=== PATIENT | female | born 1975 | race Caucasian/White ===

== ENCOUNTER 2017-12-31 17:14 | Emergency (ER) | payer MEDICAID, SELFPAY ==
[2017-12-31 17:15] VITALS: BP 157/88; PULSE 103; RESP 22; TEMP 36; O2SAT 99; BMI 41.2
--- NOTE | 2017-12-31 18:34 | US_ITS ---
STUDY: ULTRASOUND GALLBLADDER REASON FOR VISIT: Female, 42 years old. Right upper quadrant pain TECHNIQUE: Ultrasound evaluation of the gallbladder was performed with real-time and static mejias-scale imaging. TECHNICAL QUALITY: Adequate. COMPARISON: None. FINDINGS: Liver measures 20 cm and appears echogenic. Gallbladder: Normal distended gallbladder. The gallbladder wall measures 1.7 mm. There is a negative sonographic Gil's sign. There is no pericholecystic fluid. There are no gallstones. Common Bile Duct (C.B.D.): The common bile duct measures 5.3 mm. US/Gallbladder IMPRESSION: Hepatocellular disease most likely hepatic steatosis. No gallstones. Electronically Signed: Govind Nassar MD at 22:04 EST , Service support ,
--- NOTE | 2017-12-31 18:36 | ED.VISSUMM ---
- ER Visit Summary Date of Service: 12/31/17 Chief Complaint: Abdominal pain History of Present Illness: The patient is a 42 F presenting with right upper quadrant abdominal pain. She states it started in September but has been worsening recently. She states in November she had a lung biopsy at [facility]. She states this was complicated by a lung collapse and ventilator dependent respiratory failure. She was diagnosed with interstitial lung disease. She takes Bactrim 3 times a week. She has seen Dr. North for gallbladder disease. She states that she was advised he will not remove her gallbladder until her lungs have healed. Physical Examination: Vitals are stable. Patient is afebrile. Alert no acute distress. HEENT exam is unremarkable. Neck is supple. Lungs are clear and equal bilaterally. Heart is regular rate and rhythm. Abdomen is soft right upper quadrant tenderness, no guarding or rebound Extremities are unremarkable. Skin is warm and dry. No rash No focal neurologic deficit. Remainder of exam is unremarkable. Emergency Department Course and Treatment: Patient was given Morphine and Zofran IV with improvement. CBC shows a white count of 13.7. Chemistries show glucose 193. Liver lipase are normal. Ultrasound of gallbladder shows hepatocellular disease likely hepatic steatosis, no gallstones. CT abdomen pelvis shows hepatic steatosis, contracted gallbladder, no acute process. Discussed with Dr. North. He will see her in the office for outpatient follow-up. She is given a prescription for Percocet and Zofran. Advised return to ED if worsening complaints. Disposition: Discharge home Impression: Abdominal pain This note was generated with Ring[employer] dictation software. It may contain incorrect words, spelling, and punctuation that were not noted in review of the chart prior to signing ED Disposition - Plan for ED Patient: Chief Complaint: Abd Pain Referrals: Veronica Lima MD [Primary Care Provider] -
--- NOTE | 2017-12-31 18:39 | ED.DCSUM_ITS ---
- ER Visit Summary Date of Service: 12/31/17 Chief Complaint: Abdominal pain History of Present Illness: The patient is a 42 F presenting with right upper quadrant abdominal pain. She states it started in September but has been worsening recently. She states in November she had a lung biopsy at [facility]. She states this was complicated by a lung collapse and ventilator dependent respiratory failure. She was diagnosed with interstitial lung disease. She takes Bactrim 3 times a week. She has seen Dr. North for gallbladder disease. She states that she was advised he will not remove her gallbladder until her lungs have healed. Physical Examination: Vitals are stable. Patient is afebrile. Alert no acute distress. HEENT exam is unremarkable. Neck is supple. Lungs are clear and equal bilaterally. Heart is regular rate and rhythm. Abdomen is soft right upper quadrant tenderness, no guarding or rebound Extremities are unremarkable. Skin is warm and dry. No rash No focal neurologic deficit. Remainder of exam is unremarkable. Emergency Department Course and Treatment: Patient was given Morphine and Zofran IV with improvement. CBC shows a white count of 13.7. Chemistries show glucose 193. Liver lipase are normal. Ultrasound of gallbladder shows hepatocellular disease likely hepatic steatosis, no gallstones. CT abdomen pelvis shows hepatic steatosis, contracted gallbladder, no acute process. Discussed with Dr. North. He will see her in the office for outpatient follow -up. She is given a prescription for Percocet and Zofran. Advised return to ED if worsening complaints. Disposition: Discharge home Impression: Abdominal pain This note was generated with [employer] dictation software. It may contain incorrect words, spelling, and punctuation that were not noted in review of the chart prior to signing ED Disposition - Plan for ED Patient: Chief Complaint: Abd Pain Referrals: Veronica Lima MD [Primary Care Provider] -
[2017-12-31] MEDS: Ondansetron 4 MG/2 ML Vial IV (18:51)
[2017-12-31 18:56] LABS: Absolute Neutrophil Count 10.1 X10^3/uL (2.0-7.7); Basophil# 0.02 X10^3/uL; Basophil% 0.1 % (0-1); Eosinophil# 0.05 X10^3/uL; Eosinophils% 0.4 % (0-5); Hematocrit 40.8 % (37-47); Hemoglobin 13.2 g/dl (12.0-15.0); Mean Corp Hgb Conc 32.4 g/gl (32-36); Mean Corpuscular Volume 95.8 fL (81-99); Mean Platelet Vol. 9.4 fl (6.2-12.0); Monocyte# 0.66 X10^3/uL; Monocyte% 4.8 % (0-10); Neutrophil # 10.08 X10^3/uL (2.7-7.7); Neutrophil % 73.9 % (47-70); Platelet Count 201 K/mm3 (150-450); RBC Distribution Width CV 14.3 % (11.6-14.6); RBC Distribution Width SD 49.3 fl (35.1-43.9); Red Blood Count 4.26 M/mm3 (4.2-5.4); White Blood Count 13.7 K/mm3 (4.4-11.0)
[2017-12-31 18:57] LABS: POSITIVE COUNT NO; POSITIVE DIFFERENTIAL NO; POSITIVE MORPHOLOGY NO
[2017-12-31 19:25] LABS: AST(SGOT) 21 U/L (15-37); Alanine Aminotransfer ALT/SGPT 44 U/L (13-56); Albumin, Serum 2.9 g/dL (3.2-5.0); Alkaline Phosphatase 94 U/L (45-117); Anion Gap 14 (5-15); BUN 15 mg/dL (7-18); BUN/Creat Ratio 17.8 RATIO (10-20); Bilirubin, Direct 0.08 mg/dL (0.00-0.30); Calcium,Total 8.8 mg/dL (8.5-10.1); Chloride 102 mmol/L (98-107); Creatinine, Serum 0.84 mg/dL (0.55-1.02); EST Glomerular Filtration Rate 79 mL/min (>60); Est Glom Filt Rate - Afr Amer 95 mL/min (>60); Estimated Creatinine Clearance 78.51 ml/min; Globulin 3.9 g/dL (2.2-4.2); Glucose 193 mg/dL (74-106); Lipase 226 U/L (73-393); Potassium 4.1 mmol/L (3.5-5.1); Protein, Total 6.8 g/dL (6.4-8.2); Sodium Level 140 mmol/L (136-145)
--- NOTE | 2017-12-31 22:43 | CT_ITS ---
STUDY: CT ABDOMEN AND PELVIS WITHOUT CONTRAST REASON FOR EXAM: Female, 42 years old. Right upper quadrant pain and history of gallbladder problems. RADIATION DOSAGE (If Supplied By Facility): CTDIvol = ( 23.46 ) mGy, DLP = ( 1230.68 ) mGycm TECHNIQUE: Transaxial images were obtained from the dome of the diaphragm to the symphysis pubis without oral contrast, and without intravenous contrast. Sagittal and coronal images were reconstructed. Individualized dose optimization techniques were used for this CT. COMPARISON: Gallbladder ultrasound from today FINDINGS: Subsegmental atelectasis at the lung bases bilaterally. Mild cardiomegaly. There is decreased attenuation of the liver consistent with steatosis. The gallbladder is contracted. Normal spleen. Normal pancreas. Normal bilateral adrenal glands. Normal right kidney. Normal left kidney. Normal visualized stomach. Normal small intestine. Normal colon. The appendix is visualized and appears normal. Normal abdominal aorta. Normal inferior vena cava. Normal retroperitoneum. Normal urinary bladder. 2.9 cm left adnexal cyst. Normal abdominal wall. Normal osseous structures. CT/Abdomen/Pelvis without Cont IMPRESSION: Hepatic steatosis. Contracted gallbladder. No other cause for right upper quadrant abdominal pain identified. Electronically Signed: Govind Nassar MD at 23:56 EST , Service support ,
[2017-12-31 23:00] VITALS: BP 143/99; PULSE 88; RESP 16
--- NOTE | 2018-01-01 00:40 | ED.DEP ---
ED Disposition - Plan for ED Patient: Chief Complaint: Abd Pain Instructions: ED Abdominal Pain Unkn Cause Prescriptions: Oxycodone HCl/Acetaminophen [Percocet 5/325] 1 tablet PO Q6H PRN PRN 3 Days #12 tablet PRN Reason: Pain Ondansetron [Zofran Odt] 4 mg PO Q8H PRN PRN #10 tablet PRN Reason: Nausea Referrals: Veronica Lima MD [Primary Care Provider] - Dre North MD [STAFF PHYSICIAN] -
[2018-01-01 01:03] VITALS: BP 102/68; PULSE 85; RESP 16
== END 2018-01-01 01:04 | disposition home or self-care (01) ==
LOC: ED 19:01
PROVIDERS: Emergency Provider Emergency Medicine; Family Provider Internal Medicine; PCP Internal Medicine
DX: R10.11 Right upper quadrant pain (principal); R11.0 Nausea; E11.9 Type 2 diabetes mellitus without complications; K76.0 Fatty (change of) liver, not elsewhere classified; J84.9 Interstitial pulmonary disease, unspecified; Z87.891 Personal history of nicotine dependence
CPT/HCPCS: 74176; 76705; 80048; 80076; 83690; 85025; 96374; 96375; 99283; J7030; A4216; J2405

== ENCOUNTER → 2018-01-07 22:31 | Outpatient (CLI) | payer MEDICAID, SELFPAY | PROVIDERS: Family Provider Internal Medicine; PCP Internal Medicine; Visit Provider Internal Medicine | DX: G47.33 Obstructive sleep apnea (adult) (pediatric) (principal); G47.10 Hypersomnia, unspecified | CPT/HCPCS: 95810 ==

== ENCOUNTER → 2018-01-13 13:29 | Outpatient (CLI) | payer MEDICAID, SELFPAY ==
--- NOTE | 2018-01-13 13:32 | CT_ITS ---
STUDY: CT CHEST WITHOUT CONTRAST REASON FOR EXAM: Female, 42 years old. The patient has a history of interstitial lung disease. Patient is on home oxygen. RADIATION DOSAGE (If Supplied By Facility): CTDIvol = ( 20.15 ) mGy, DLP = ( 684.71 ) mGycm TECHNIQUE: Transaxial imaging was performed without the administration of intravenous contrast material. Multiplanar coronal and sagittal images were reformatted. Individualized dose optimization techniques were used for this CT. COMPARISON: Comparison is made with prior study dated August 07, 2017. FINDINGS: Emphysematous changes with bullous formation worse in the upper lobes. Since prior study, there has been progressive fibrocalcific scarring at the right lung base. Progressive increased markings in both lower lobes suggestive of progressive linear atelectasis and/or scarring. There is no demonstrated pleural abnormality. There are calcifications of the coronary arteries. There are multiple small lymph nodes within the mediastinum, which are normal in size and morphology most compatible with reactive lymph hyperplasia. Normal hilar regions. Normal unenhanced pulmonary arteries. Normal aorta arch and descending thoracic aorta. There are multi-level degenerative changes of the thoracic spine. Diffuse fatty infiltration of the liver. Mild hepatomegaly. CT/Chest without Contrast IMPRESSION: Since prior study, there has been progressive fibrocalcific scarring in the right midlung and right lower lobe as well as in the lingular segment of left upper lobe. Electronically Signed: Nitish Moore MD at 14:55 EST Tel [phone], Service support ,
== END ==
PROVIDERS: Family Provider Internal Medicine; PCP Internal Medicine
DX: J84.9 Interstitial pulmonary disease, unspecified (principal)
CPT/HCPCS: 71250

== ENCOUNTER → 2018-01-20 08:29 | Outpatient (CLI) | payer MEDICAID, SELFPAY ==
--- NOTE | 2018-01-20 08:32 | RAD_ITS ---
STUDY: MAMMOGRAM. REASON FOR EXAM: Female, 42 years old. 3 month history of right upper quadrant pain. Diarrhea. FLUOROSCOPY TIME (if supplied): (1:20) minutes/seconds TECHNIQUE: A signal maintenance technician film was obtained. Following this, barium was introduced retrograde through the rectum. The entire colon was opacified. COMPARISON: None. FINDINGS: There is no evidence of a retrograde or antegrade obstruction to the flow of contrast. No mass lesion is seen. RAD/Barium Enema w/Air Contrast IMPRESSION: Unremarkable barium enema. Electronically Signed: Nitish Moore MD at 12:57 EST Tel [phone], Service support ,
== END ==
PROVIDERS: Family Provider Internal Medicine; PCP Internal Medicine; Visit Provider Surgery
DX: R10.10 Upper abdominal pain, unspecified (principal)
CPT/HCPCS: 74280

== ENCOUNTER → 2018-01-21 17:13 | Outpatient (CLI) | payer MEDICAID, SELFPAY ==
[2018-01-21 19:12] LABS: Amphetamine Urine VISTA NEGATIVE (<1000 ng/mL); Barbiturate Urine VISTA NEGATIVE (< 200 ng/mL); Benzodiazepine Urine VISTA NEGATIVE (< 200 ng/mL); Cocaine Urine VISTA NEGATIVE (< 300 ng/mL); Ecstacy Urine VISTA NEGATIVE (< 500 ng/mL); Methadone Urine VISTA NEGATIVE (< 300 ng/mL); PCP Urine VISTA NEGATIVE (< 25 ng/mL); THC Urine VISTA NEGATIVE (< 50 ng/mL); Vista UDS pH Range 6
== END ==
PROVIDERS: Family Provider Internal Medicine; PCP Internal Medicine; Visit Provider Anesthesiology
DX: F11.20 Opioid dependence, uncomplicated (principal)
CPT/HCPCS: 80307

== ENCOUNTER → 2018-02-11 22:46 | Outpatient (CLI) | payer MEDICAID, SELFPAY | PROVIDERS: Family Provider Internal Medicine; PCP Internal Medicine; Visit Provider Internal Medicine | DX: G47.33 Obstructive sleep apnea (adult) (pediatric) (principal) | CPT/HCPCS: 95811 ==

== ENCOUNTER → 2018-02-18 18:40 | Outpatient (CLI) | payer MEDICAID, SELFPAY ==
--- NOTE | 2018-02-18 19:05 | RAD_ITS ---
STUDY: X-RAY - LUMBAR SPINE REASON FOR EXAM: Female, 42 years old. Low back pain TECHNIQUE: 5 view(s) of the lumbar spine were obtained. COMPARISON: None FINDINGS: There is straightening of the normal lumbar lordosis. There is no substantial scoliosis. There are bilateral pars articularis defects at L5-S1. There is a Grade 1 anterolisthesis of L5 on S1. There is multilevel endplate spondylosis of the lumbar vertebrae. Normal disc space heights. There are atherosclerotic vascular calcifications. The soft tissue structures are unremarkable. RAD/L/S Spine Min 4 Views IMPRESSION: There are bilateral pars articularis defects at L5-S1. There is a Grade 1 anterolisthesis of L5 on S1. There is mild straightening of the normal lumbar lordosis. This can suggest back strain. Electronically Signed: Bernardo Khalil MD at 19:38 EDT , Service support ,
[2018-02-22 15:55] LABS: ANTINUCLEAR ANTIBODIES DIRECT Negative (Negative)
[2018-02-22 16:09] LABS: Cytoplasmic Ab (C-ANCA) <1:20 titer (Neg:<1:20)
[2018-02-22 16:17] LABS: Angiotensin Convert Enzyme 47 U/L (14-82); Perinuclear Ab (P-ANCA) <1:20 titer (Neg:<1:20)
== END ==
PROVIDERS: Family Provider Internal Medicine; PCP Internal Medicine
DX: J84.9 Interstitial pulmonary disease, unspecified (principal); M54.5 Low back pain
CPT/HCPCS: 36415; 72110; 82164; 86038; 86256

== ENCOUNTER → 2018-04-24 14:04 | Outpatient (CLI) | payer MEDICAID, SELFPAY ==
[2018-04-24 14:49] LABS: Amphetamine Urine VISTA NEGATIVE (<1000 ng/mL); Barbiturate Urine VISTA NEGATIVE (< 200 ng/mL); Benzodiazepine Urine VISTA POSITIVE (< 200 ng/mL); Cocaine Urine VISTA NEGATIVE (< 300 ng/mL); Ecstacy Urine VISTA NEGATIVE (< 500 ng/mL); Methadone Urine VISTA NEGATIVE (< 300 ng/mL); PCP Urine VISTA NEGATIVE (< 25 ng/mL); THC Urine VISTA NEGATIVE (< 50 ng/mL); Vista UDS pH Range 6
== END ==
PROVIDERS: Family Provider Internal Medicine; PCP Internal Medicine; Visit Provider Anesthesiology
DX: F11.20 Opioid dependence, uncomplicated (principal)
CPT/HCPCS: 80307

== ENCOUNTER → 2018-05-20 16:35 | Outpatient (CLI) | payer MEDICAID, SELFPAY | PROVIDERS: Family Provider Internal Medicine; PCP Internal Medicine; Visit Provider Anesthesiology | DX: F11.20 Opioid dependence, uncomplicated (principal) ==

== ENCOUNTER → 2019-04-10 16:38 | Outpatient (CLI) | payer MEDICAID, SELFPAY | PROVIDERS: Family Provider Internal Medicine; PCP Internal Medicine; Referring Provider Otolaryngology Otolaryngology/Facial Plastic Surgery; Visit Provider Otolaryngology Otolaryngology/Facial Plastic Surgery | DX: J32.9 Chronic sinusitis, unspecified (principal); H66.90 Otitis media, unspecified, unspecified ear | CPT/HCPCS: 87070; 87077; 87186; 87205 ==

== ENCOUNTER → 2019-05-31 15:37 | Outpatient (CLI) | payer MEDICAID, SELFPAY | PROVIDERS: Family Provider Internal Medicine; PCP Internal Medicine; Referring Provider Otolaryngology Otolaryngology/Facial Plastic Surgery; Visit Provider Otolaryngology Otolaryngology/Facial Plastic Surgery | DX: J32.9 Chronic sinusitis, unspecified (principal) | CPT/HCPCS: 87070; 87077; 87205 ==

== ENCOUNTER → 2019-06-22 12:51 | Outpatient (CLI) | payer MEDICAID, SELFPAY ==
--- NOTE | 2019-06-22 12:53 | CT_ITS ---
STUDY: CT MAXILLOFACIAL SINUSES REASON FOR EXAM: Female, 43 years old. Sinusitis, chronic left-sided congestion RADIATION DOSAGE (If Supplied By Facility): CTDIvol = ( 33.06 ) mGy, DLP = ( 796.66 ) mGycm TECHNIQUE: The patient was scanned in a multi detector CT scanner. High resolution axial imaging was performed without the administration of intravenous contrast material. Sagittal and coronal images were reconstructed. Individualized dose optimization techniques were used for this CT. COMPARISON: None. FINDINGS: FRONTAL SINUSES: There is mucosal thickening of the right frontal sinus. The left frontal sinus is clear. ETHMOIDAL SINUSES: Normal aeration, without mucosal inflammatory disease. MAXILLARY SINUSES: Normal aeration, without mucosal inflammatory disease. SPHENOIDAL SINUSES: Normal aeration, without mucosal inflammatory disease. There is patency of the bilateral maxillary infundibuli with normal uncinate processes, ethmoid bullae, and hiatus semilunaris. Normal bilateral middle turbinates. Normal bilateral inferior turbinates. Normal midline nasal septum. There is patency of the bilateral nasal airways. The visualized osseous structures are normal. The visualized bilateral orbital contents are normal. CT/Sinus/Facial Bone IMPRESSION: Mucosal thickening of the right frontal sinus consistent with chronic right frontal sinusitis. The remainder of the study is unremarkable. Electronically Signed: Efra Link MD at 22:01 EDT , Service support ,
== END ==
PROVIDERS: Family Provider Internal Medicine; PCP Internal Medicine; Referring Provider Otolaryngology Otolaryngology/Facial Plastic Surgery; Visit Provider Otolaryngology Otolaryngology/Facial Plastic Surgery
DX: J32.9 Chronic sinusitis, unspecified (principal)
CPT/HCPCS: 70486

== ENCOUNTER 2025-04-23 16:57 | Emergency (ER) | payer MEDICARE, MEDICAID, SELFPAY ==
[2025-04-23 16:57] VITALS: BP 147/80; PULSE 110; RESP 20; TEMP 36.6; O2SAT 97; BMI 37.2
[2025-04-23 18:48] VITALS: BP 139/62; PULSE 97; RESP 18; TEMP 37.1; O2SAT 97
[2025-04-23] MEDS: Ipratropium/Albuterol Sulfate 3 ML AMPUL.NEB INHALATION (19:37)
[2025-04-23 19:40] VITALS: PULSE 97; RESP 19
[2025-04-23 20:00] VITALS: BP 116/68; PULSE 97; RESP 18; TEMP 36.6; O2SAT 100
--- NOTE | 2025-04-23 20:04 | ED.VIS.DYS ---
HPI History of Present Illness Chief Complaint: Cough Narrative Narrative: Chief complaint and HPI: Cough and cold-like symptoms. 49-year-old female with past medical history of pulmonary fibrosis, hypothyroidism presents for evaluation of cough and cold-like symptoms. Onset approximately 2 weeks. Patient recently started prednisone. Symptoms consist of nasal congestion, sinus pressure, headache, cough. Denies any fever, chills, chest pain, shortness of breath, abdominal pain, nausea, vomiting, diarrhea. Does endorse decreased appetite. Review of systems: See HPI Medications: As listed on the chart Allergies: As listed on the chart PFSH: Per chart Vital signs: As listed on the chart. Reviewed. Physical exam: Gen: A&O x3, nontoxic Head: Normocephalic, atraumatic Eyes: No sclera icterus, conjunctiva clear, PERRL, EOMI ENT: TMs clear BL, moist mucous membranes, posterior oropharynx unremarkable, uvula midline, tonsils not enlarged, no tonsillar exudates, + sinus tenderness, + nasal congestion Neck: Trachea midline, No JVD, Full ROM, No meningismus CV: RRR, no murmurs, no peripheral edema Resp: Lungs CTA BL, no w/r/c, + dry cough GI: Abd soft, non-distended, non-tender, no r/r/g Musc: Full ROM, no deformity Skin: Warm, dry, no rash Neuro: Alert, oriented, grossly intact, sensation intact Psych: Cooperative, appropriate mood and affect [facility] Medical History (Updated 04/23/25 @ 21:[address] Pedrito Naik, DO) Cough Home Medications ?Medication ?Instructions ?Recorded ?Last Taken ?Type albuterol sulfate 2.5 mg/3 mL 2.5 mg inhalation Q4H PRN PRN Sob 12/31/17 Unknown History (0.083 %) solution for nebulization &/Or Wheezing albuterol sulfate 90 mcg/actuation 2 puff inhalation Q4H PRN PRN Sob 12/31/17 Unknown History aerosol inhaler (ProAir HFA) &/Or Wheezing alprazolam 0.5 mg tablet 0.5 mg PO TID PRN PRN Anxiety 12/31/17 Unknown History aspirin 81 mg chewable tablet 81 mg PO DAILY 12/31/17 Unknown History ergocalciferol (vitamin D2) 1,250 50,000 unit PO MOFR 12/31/17 Unknown History mcg (50,000 unit) capsule (Vitamin D2) glipizide 5 mg tablet 5 mg PO DAILY 12/31/17 Unknown History insulin glargine 100 unit/mL (3 20 unit SQ QHS 12/31/17 Unknown History mL) subcutaneous pen (Basaglar KwikPen U-100 Insulin) prednisone 20 mg tablet 20 mg PO Q12H 12/31/17 Unknown History tiotropium bromide 2.5 2.5 mcg IH DAILY 12/31/17 Unknown History mcg/actuation mist for inhalation (Spiriva Respimat) ondansetron 4 mg disintegrating 4 mg PO Q8H PRN PRN Nausea #10 tabs 01/01/18 Unknown Rx tablet amoxicillin 875 mg-potassium 1 tab PO BID 10 days #19 tabs 04/23/25 Unknown Rx clavulanate 125 mg tablet famotidine 20 mg tablet 20 mg PO QHS PRN PRN heartburn 04/23/25 Unknown History hydrochlorothiazide 12.5 mg capsule 12.5 mg PO DAILY 04/23/25 Unknown History levothyroxine 25 mcg tablet 25 mcg PO DAILY 04/23/25 Unknown History Allergy/AdvReac Type Severity Reaction Status Date / Time levofloxacin (From Levaquin) Allergy Anaphylaxis Verified 04/23/25 16:57 sertraline (From Zoloft) Allergy Other Verified 04/23/25 16:57 topiramate (From Topamax) Allergy Other Verified 04/23/25 16:57 moxifloxacin (From Avelox) AdvReac Rash Verified 04/23/25 16:57 Social History Smoking Status: Former smoker EXAM Physical Exam Const Vital Signs: 04/23/25 16:57 04/23/25 18:48 04/23/25 18:49 Temperature 98 F 98.7 F Temperature Source Oral Oral Pulse Rate 110 H 97 Respiratory Rate 20 H 18 Respiratory Effort Short of Breath Blood Pressure 147/80 H 139/62 H Blood Pressure Mean 102 87 Pulse Ox 97 97 Oxygen Delivery Method Room Air Room Air 04/23/25 19:40 04/23/25 20:00 04/23/25 20:46 Temperature 98 F 98.5 F Temperature Source Temporal Temporal Pulse Rate 97 97 81 Respiratory Rate 19 H 18 19 H Respiratory Effort Blood Pressure 116/68 108/81 H Blood Pressure Mean 84 90 Pulse Ox 100 98 Oxygen Delivery Method Room Air Room Air 04/23/25 21:40 Temperature 98 F Temperature Source Pulse Rate 97 Respiratory Rate 17 Respiratory Effort Blood Pressure 123/72 H Blood Pressure Mean 89 Pulse Ox 97 Oxygen Delivery Method MDM MDM MDM Narrative Medical decision making narrative: 49-year-old female with past medical history of pulmonary fibrosis, hypothyroidism presents for evaluation of cough and cold-like symptoms. Onset approximately 2 weeks. Differential diagnosis includes but is not limited to sinus infection, pneumonia, bronchitis, dehydration. DuoNeb ordered for symptomatic shortness of breath. Laboratory workup ordered including chest x-ray. CBC with leukocytosis of 14.4. Patient is on prednisone. BMP shows mild dehydration without JULIUS. Chest x-ray without pneumonia, effusion, cardiomegaly, pneumothorax. Patient does have interstitial markings which is usually consistent with viral etiology. Radiology and agreement. I suspect patient's symptoms are secondary to sinus infection with bronchitis. Patient will be placed on a 10-day course of Augmentin. Follow-up with PCP. Return precautions explained. She confirmed understanding. Patient's shortness of breath has improved with DuoNeb. Impression: 1. Sinus infection 2. Bronchitis Lab Data Labs: Laboratory Results - last 24 hr 04/23/25 20:00 WBC 14.4 H RBC 4.74 Hgb 14.1 Hct 43.5 MCV 91.8 MCH 29.7 MCHC 32.4 RDW Std Deviation 52.0 H RDW Coeff of Sofia 15.3 H Plt Count 331 MPV 9.2 Immature Gran % (Auto) 2.600 H Neut % (Auto) 74.5 H Lymph % (Auto) 19.3 Scott % (Auto) 2.9 Eos % (Auto) 0.1 Baso % (Auto) 0.6 Absolute Neuts (auto) 10.7 H Absolute Lymphs (auto) 2.78 Nucleated RBC % 0 Sodium 138 Potassium 4.1 Chloride 102 Carbon Dioxide 17.9 L Anion Gap 18 H BUN 4 Creatinine 0.72 Estim Creat Clear Calc 111.62 Est GFR (MDRD) Non-Af 103 BUN/Creatinine Ratio 6.1 L Glucose 160 H Calcium 9.4 Radiography Diagnostic Testing: Clinical Impression(s) from Imaging Studies Chest X-Ray 04/23/25 20:10 IMPRESSION: Increased interstitial markings with prominent perihilar region, which could be the result of atypical/viral infection or pulmonary edema. Reading Location: [facility] Discharge Plan Triage Chief Complaint: Cough ED Provider: Pedrito Naik Dx/Rx/DC Orders Clinical Impression: Acute sinus infection, Bronchitis Instructions: Acute Bronchitis, ED Sinusitis (Antibiotic Treatment) Prescriptions: New amoxicillin-pot clavulanate 875-125 mg tablet 1 tab PO BID 10 Days Qty: 19 0RF No Action albuterol sulfate 2.5 MG/3 ML solution for nebulization 2.5 mg inhalation Q4H PRN PRN (Reason: Sob &/Or Wheezing) prednisone 20 MG tablet 20 mg PO Q12H alprazolam 0.5 MG tablet 0.5 mg PO TID PRN PRN (Reason: Anxiety) aspirin 81 MG tablet,chewable 81 mg PO DAILY ergocalciferol (vitamin D2) [Vitamin D2] 50,000 UNIT capsule 50,000 unit PO MOFR albuterol sulfate [ProAir HFA] 1 PUFF inhaler 2 puff inhalation Q4H PRN PRN (Reason: Sob &/Or Wheezing) glipizide 5 MG tablet 5 mg PO DAILY insulin glargine [Basaglar KwikPen U-100 Insulin] 100 UNIT/ML insulin pen 20 unit SQ QHS Spiriva Respimat 4 GM mist 2.5 mcg IH DAILY ondansetron 4 MG tablet 4 mg PO Q8H PRN PRN (Reason: Nausea) Qty: 10 0RF levothyroxine 25 mcg tablet 25 mcg PO DAILY Rx Instructions: reports 1.5 tabs on sat/sun hydrochlorothiazide 12.5 mg capsule 12.5 mg PO DAILY famotidine 20 mg tablet 20 mg PO QHS PRN PRN (Reason: heartburn) Primary Care Provider: Veronica Lima Referrals: Veronica Lima MD [Primary Care Provider] - 3-5 Days Activity Restrictions/Additional Instructions: Follow-up with primary care physician. Return back to the ED if symptoms change or worsen. Take all of your antibiotics. You received your first dose here in the emergency department. Return back to the ED if symptoms change or worsen. Print Language: Samoan Disposition Disposition: Home, Self Care Discharge Date/Time: 04/23/25 21:43
[2025-04-23 20:10] LABS: Absolute Lymphocyte Count 2.78 X10^3/uL (0.83-4.51); Absolute Neutrophil Count 10.7 X10^3/uL (2.0-7.7); Basophil# 0.09 X10^3/uL; Basophil% 0.6 % (0-1); Eosinophil# 0.02 X10^3/uL; Eosinophils% 0.1 % (0-5); Hematocrit 43.5 % (37-47); Hemoglobin 14.1 g/dL (12.0-15.0); Lymphocyte # 2.78 X10^3/ul (0.83-4.51); Lymphocyte % 19.3 % (19-41); Mean Corp Hgb Conc 32.4 g/dL (32-36); Mean Corpuscular Hgb 29.7 pg (27.0-32.0); Mean Corpuscular Volume 91.8 fL (81-99); Mean Platelet Vol. 9.2 fl (6.2-12.0); Monocyte# 0.42 X10^3/uL; Monocyte% 2.9 % (0-10); NRBC Flagged by Analyzer 0 % (0-5); Neutrophil # 10.73 X10^3/uL (2.7-7.7); Neutrophil % 74.5 % (47-70); Platelet Count 331 K/mm3 (150-450); RBC Distribution Width CV 15.3 % (11.6-14.6); Red Blood Count 4.74 M/mm3 (4.2-5.4); White Blood Count 14.4 K/mm3 (4.4-11.0)
--- NOTE | 2025-04-23 20:10 | RAD_ITS ---
PROCEDURE: CHEST PA AND LATERAL 04/23/2025 REASON FOR EXAM: COUGH TECHNIQUE: Frontal and lateral views of the chest. COMPARISON: None FINDINGS: Hardware: None Heart: Heart size is mildly enlarged. Mediastinum: The mediastinal contour is unremarkable. Lungs: Hazy opacities and increased interstitial markings which is more pronounced at the lung bases. Prominent appearance of the perihilar region on the lateral view. No pleural effusion. Bones: Mild degenerative changes are identified within the thoracic spine. RAD/Chest PA and Lateral IMPRESSION: Increased interstitial markings with prominent perihilar region, which could be the result of atypical/viral infection or pulmonary edema. Reading Location: [facility]
[2025-04-23 20:44] LABS: Anion Gap 18 (5-15); BUN 4 mg/dL (4-19); BUN/Creat Ratio 6.1 RATIO (10-20); Calcium,Total 9.4 mg/dL (7.6-11.0); Carbon Dioxide 17.9 mmol/L (21.0-32.0); Chloride 102 mmol/L (98-108); Creatinine, Serum 0.72 mg/dL (0.70-1.20); EST Glomerular Filtration Rate 103 (>60); Estimated Creatinine Clearance 111.62 ml/min (50-250); Glucose 160 mg/dL (70-99); Potassium 4.1 mmol/L (3.3-5.1); Sodium Level 138 mmol/L (133-145)
[2025-04-23 20:46] VITALS: BP 108/81; PULSE 81; RESP 19; TEMP 36.9; O2SAT 98
[2025-04-23] MEDS: Amox/Clavulanate 875 MG Tablet PO (21:39)
[2025-04-23 21:40] VITALS: BP 123/72; PULSE 97; RESP 17; TEMP 36.6; O2SAT 97
== END 2025-04-23 21:43 | disposition home or self-care (01) ==
PROVIDERS: Emergency Provider Surgery; PCP Internal Medicine; Visit Provider Surgery
DX: J01.90 Acute sinusitis, unspecified (principal); J40 Bronchitis, not specified as acute or chronic; E86.0 Dehydration; Z87.891 Personal history of nicotine dependence; E03.9 Hypothyroidism, unspecified
CPT/HCPCS: 71046; 80048; 85025; 94640; 99284; A4216

== ENCOUNTER → 2025-05-24 | Outpatient (CLI) | payer MEDICARE, MEDICAID, SELFPAY | END | disposition home or self-care (01) | LOC: CT 12:44 | PROVIDERS: PCP Internal Medicine; Referring Provider Otolaryngology; Visit Provider Otolaryngology | DX: J32.9 Chronic sinusitis, unspecified (principal) | CPT/HCPCS: 70486 ==